=== PATIENT | female | born 1995 | race Caucasian/White ===

== ENCOUNTER 2017-08-25 21:20 | Emergency (ER) | payer OTHER ==
[2017-08-25] MEDS ORDERED: NS 1,000 ML IV ONE (21:29)
--- NOTE | 2017-08-25 21:33 | EDPHY ---
H & P Stated Complaint: "Seizure like" 5-10 seconds at dinner,AxO4, denies ETOH Source: Patient Exam Limitations: No limitations - Personal History LMP (Females 10-55): 22-28 Days Ago Current Tetanus Diphtheria and Acellular Pertussis (TDAP): Yes - Medical/Surgical History Hx Asthma: No Hx Chronic Respiratory Disease: No Hx Diabetes: No Hx Cardiac Disease: No Hx Renal Disease: No Hx Cirrhosis: No Hx Alcoholism: No Hx HIV/AIDS: No Hx Splenectomy or Spleen Trauma: No Other PMH: Denies - Social History Smoking Status: Never smoked Time Seen by Provider: 08/25/17 21:30 HPI/ROS: HPI: This is a 22-year-old female who presents with Chief Complaint: "Seizure like" 5-10 seconds at dinner,AxO4, denies ETOH Location: Body Quality: Seizure-like activity Duration: 10 sec Signs and Symptoms: no fever, no nausea, no vomiting, no photophobia, no noise sensitivity, no neck stiffness, no ear pain, no tinnitus, no nasal congestion, no sinus pressure, no weakness, no radiation, no aura Timing: Completely resolved Severity: Mild Context: Patient is generally healthy presents with, not answering her friends and slumping over while at dinner that lasted approximately 5-10 seconds friend at bedside reports that her arms shook up and down for approximately 5 sec. She then gradually woke up and was confused and then returned to baseline. Patient reports that she started to feel lightheaded denies the room spinning, headache, vision changes. She denies any tongue biting or incontinence. She reports that approximately 3 years ago she had similar episode while she was in [place] where she is originally from and she had an EEG performed that was unremarkable. She does not take any anti seizure medications regularly. She has eaten and drank today without any difficulties. She did eat at a bowls approximately 2 hr prior to this occurring. Her last menstrual period was 22- 28 days ago. She takes control pills and reports compliance. Patient denies any recent trauma or head injury. Modifying Factors: None Comment: ROS: see HPI Constitutional: No fever, no chills, no weight loss Eyes: No blurred vision Respiratory: No shortness of breath, no cough Cardiovascular: No chest pain, no palpitations Gastrointestinal: No nausea, no vomiting, no diarrhea, no hematemesis, no blood in stool Genitourinary: No dysuria, no blood in urine Extremities: No myalgias, no edema Neurologic: No weakness, no numbness Skin: No rashes, no petechiae Hematologic: No bruising, no bleeding MEDICAL/SURGICAL/SOCIAL HISTORY: Medical history: Generally healthy. Does not take any regular medications. Surgical history: Denies Social history: Originally from [place]. Does not have a primary care provider neurologist in [facility]. Family history noncontributory. CONSTITUTIONAL: Extremely polite and well-appearing young adult white female, awake and alert, no obvious distress HEENT: Atraumatic and normocephalic, PERRL, EOMI. Nares patent; no rhinorrhea; no nasal mucosal edema. Tympanic membranes clear. Oropharynx clear, no exudate and moist pink mucosa. Airway patent. No lymphadenopathy. No meningismus. Cardiovascular: Normal S1/S2, regular rate, regular rhythm, without murmur rub or gallop. PULMONARY/CHEST: Symmetrical and nontender. Clear to auscultation bilaterally. Good air movement. No accessory muscle usage. ABDOMEN: Soft, nondistended, nontender, no rebound, no guarding, no peritoneal signs, no masses or organomegaly. No CVAT. EXTREMITIES: 2/2 pulses, strength 5/5, no deformities, no clubbing, no cyanosis or edema. NEUROLOGICAL: no focal neuro deficits. GCS 15. Cranial nerves 2-12 grossly intact. SKIN: Warm and dry, no erythema. no rash. Good capillary refill. (Ced,Tess) Constitutional: Initial Vital Signs Temperature (C) 36.7 C 08/25/17 21:22 Heart Rate 84 08/25/17 21:22 Respiratory Rate 20 08/25/17 21:22 Blood Pressure 108/55 L 08/25/17 21:22 O2 Sat (%) 94 08/25/17 21:22 O2 Delivery Mode Room Air Allergies/Adverse Reactions: No Known Allergies Allergy (Unverified 08/25/17 21:22) Medical Decision Making ED Course/Re-evaluation: Vital signs reviewed and stable upon arrival. No systemic signs. No neurological deficits. Patient is not currently having any seizure activity upon arrival. Labs, IV fluids ordered This is not the 1st occurrence of pseudoseizures. Neuro imaging of the brain in the ED is not indicated. Doubt infectious process and LP not indicated. labs reviewed. No signs of leukocytosis/anemia/platelet dysfunction/YUSUF/ electrolyte imbalance/. Patient will refer to neurology for outpatient EEG. This patient was seen under the supervision of my secondary supervising physician. I evaluated care for this patient independently. Discussed this patient with Dr. Jarrett. (Tess Coughlin) The patient was evaluated and managed by the physician library media assistant. I have reviewed this chart and I agree with the findings and plan of care as documented , as indicated by my signature. I am the secondary supervising physician. ( Miranda Jarrett) Differential Diagnosis: Seizure including but not limited to electrolyte abnormality, alcohol withdrawal , medication noncompliance, head injury, and breakthrough seizure. (Tess Coughlin) - Data Points Laboratory Results: Laboratory Results 08/25/17 21:33 08/25/17 21:33 Medications Given: Discontinued Medications Sodium Chloride (Ns) 1,000 mls @ 0 mls/hr IV ONCE ONE; Wide Open PRN Reason: Protocol Stop: 08/25/17 21:30 Last Admin: 08/25/17 21:34 Dose: 1,000 mls Departure - Departure Disposition: Home, Routine, Self-Care Clinical Impression: Observed seizure-like activity Condition: Good Instructions: New-Onset Seizure in Adults (ED), Electroencephalogram (DC) Additional Instructions: Consume a minimum of 8-10 glasses of water or electrolyte fluid replacement drinks that include Gatorade, Powerade, Pedialyte. Eat 3 regular meals daily. Refrain from using alcohol or drugs as this can elicit seizure-like activity. Establish care with Neurology for follow-up in the next 1-2 weeks. Follow-Up: Please follow-up as noted above. Follow up sooner if your condition worsens or if you develop any new problems Call as soon as possible for an appointment. Be clear when you call for an appointment that this is an Emergency Department follow-up. Contact the Emergency Department if you are having trouble arranging follow up care. Our referrals are not based on your insurance network. When time allows, contact your insurance carrier to verify the referral physician is in your plan. If not, get a referral for an in-network controller. Please ask us if you have any questions. Referrals: [facility] [Outside] - As per Instructions
[2017-08-25 21:42] LABS: PLATELET COUNT 323 10^3/uL (150-400)
[2017-08-25 22:14] VITALS: BP 95/71
== END 2017-08-25 22:24 | disposition home or self-care (01) ==
DX: R56.9 Unspecified convulsions (principal); E86.9 Volume depletion, unspecified